=== PATIENT | male | born 1980 | race Caucasian/White ===

== ENCOUNTER 2024-04-05 16:14 | Emergency (ER) | payer MEDICAID, SELFPAY ==
[2024-04-05] VITALS (8 sets, daily range): BP systolic 131–179; BP diastolic 70–93; PULSE 52–87; RESP 16–32; TEMP 36.6; O2SAT 96–98; BMI 32.6
--- NOTE | 2024-04-05 16:29 | ED.VIS.DYS ---
HPI History of Present Illness Chief Complaint: Shortness of Breath [facility] Medical History (Updated 04/05/24 @ 16:24 by Brianna Ramos) Hypertension Asthma Home Medications ?Medication ?Instructions ?Recorded ?Last Taken ?Type No Known/Unobtainable [No Known 07/16/17 Unknown History Home Medications] Allergy/AdvReac Type Severity Reaction Status Date / Time divalproex sodium (From Allergy Hives Verified 04/05/24 16:15 Depakote) tramadol Allergy Itching Verified 04/05/24 16:15 Social History Smoking Status: Former smoker EXAM Physical Exam Const Vital Signs: 04/05/24 16:15 04/05/24 16:22 04/05/24 17:11 Temperature 97.8 F Temperature Source Temporal Pulse Rate 87 64 Respiratory Rate 20 H 17 Respiratory Effort Labored Respiratory Pattern Normal Blood Pressure 154/86 H Blood Pressure Mean 108 Pulse Ox 98 Oxygen Delivery Method Room Air Room Air 04/05/24 17:14 04/05/24 17:18 04/05/24 18:00 Temperature Temperature Source Pulse Rate 67 87 Respiratory Rate 16 32 H Respiratory Effort Respiratory Pattern Blood Pressure 148/93 H 179/79 H Blood Pressure Mean 111 104 Pulse Ox 97 97 98 Oxygen Delivery Method Room Air Room Air 04/05/24 19:00 Temperature Temperature Source Pulse Rate 59 L Respiratory Rate 18 Respiratory Effort Respiratory Pattern Blood Pressure 131/70 H Blood Pressure Mean 90 Pulse Ox 96 Oxygen Delivery Method MDM MDM MDM Narrative Medical decision making narrative: HISTORY OF PRESENT ILLNESS: 44-year-old male presents with cough, shortness of breath since yesterday. States he started using a new chemical engine cleaner at that time. He notes that he can barely catch his breath. 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 He states when he was exposed to engine cleaner yesterday he had trouble breathing. He denies chest pain The patient denies recent surgery in the last 4 weeks or immobilization in the last 3 days, denies previous diagnosis of DVT or PE, hemoptysis, unilateral leg swelling or malignancy with treatment the last 6 months or palliative. No estrogen use noted. REVIEW OF SYSTEMS: Pertinent positives: Shortness of breath, chest tightness, coughing Pertinent negatives: Leg swelling, fever, chest pain, syncope PHYSICAL EXAM: Nursing triage notes reviewed, Vital signs reviewed Constitutional: please see mdm HENT: MMM Eyes: Pupils equal round and reactive to light, Extraocular muscles intact Neck: No stridor, no JVD, full neck ROM Lungs: Clear to auscultation, No wheezing or rales. No increased work of breathing, no conversational dyspnea, no accessory muscle use, no nasal flaring. No respiratory distress noted Heart: Regular rate and rhythm, No murmurs, No rubs and No gallops, 2+ distal pulses (radial, femoral, posterior tibial) in all extremities Abdomen: Soft, there is no tenderness, rigidity, rebound or guarding, no obvious peritoneal signs, no palpable pulsatile abdominal masses, no auscultated abdominal bruit : No CVAT Extremities: No edema Neuro: No focal neurological deficits, cranial nerves II through XII intact, 5/5 strength in all extremities. Intact sensation to light touch in all extremities, 2+ reflexes bilateral patella tendons. Normal gait. No ataxia. Skin: No rash or lesions noted MEDICAL DECISION MAKING: Chief Complaint: Dyspnea External records reviewed: Imaging reviewed: Reviewed chest x-ray from 2017 which showed a normal x-ray of the chest Factors affecting care: reported history of asthma, hypertension Social determinants of health: none History obtained from others: none Consults: none MDM Narrative: Patient was initially hypertensive with a blood pressure 154/86, tachypneic and respirate of 20, otherwise afebrile and nontoxic-appearing. Exam without focal cardiopulmonary maladies. No stigmata of VTE or CHF noted. I considered the following differential diagnosis: Asthma exacerbation, pneumonia, anemia, electrolyte disturbance, pneumothorax, electrolyte disturbance I obtained a broad lab and imaging workup to further elucidate etiology of the patient complaint. I gave a breathing treatment per patient request. ALL IMAGES (IF OBTAINED) HAVE BEEN PERSONALLY REVIEWED AND INTERPRETED BY MYSELF. EKG with normal sinus rhythm, normal axis, normal intervals, no STEMI I have personally reviewed the patient's chest x-ray. Chest x-ray is unremarkable for pulmonary edema, pneumothorax, pneumonia or focal cardiopulmonary abnormality. CBC without leukocytosis, severe anemia, no thrombocytopenia. BMP without evidence of significant electrolyte abnormalities, no anion gap, no acute kidney injury. High-sensitivity troponin is negative, no evidence of myocardial ischemia The synthesis of the patient's history, physical exam, labs images suggest no acute lateral radiology specifically no signs of pneumonia, pneumothorax, anemia, electro disturbance,. Patient was not significantly wheezing he had no significant tachypnea or signs of respiratory distress. No clinical evidence suggest asthma exacerbation. I considered pulm embolism however the patient had a low risk Wells score and as such have a low suspicion for VTE. Upon reassessment patient blood pressure improved to 131/70. He continued to be in respiratory distress. He is likely suffering from reactive airway disease secondary to being exposed to noxious substances in engine cleaner noted in historyr. Recommended using more PPE at work and following up with his primary care for further outpatient evaluation and treatment. The patient and/or family, caregivers express understanding. The patient and/or family, caregivers agrees with the plan. Shared decision making: I will have a discussion with the patient and or visitors regarding risk/benefits of further testing or admission. They will be made aware of of the risk/benefits inherent in this decision they will be given the opportunity to voice understanding. Total critical care time today provided was at least 0 minutes. This excludes separately billable procedures. Critical care time (if documented) is secondary to the patient having high probability of clinically significant/life threatening deterioration in the patient's condition which required my urgent intervention. Impression: 1. Dyspnea 2. History of asthma 3. Reactive airway disease Dispo: Discharge home This note was generated with [employer] dictation software. It may contain incorrect words, spelling, and punctuation that were not noted in review of the chart prior to signing. Lab Data Labs: Laboratory Results - last 24 hr 04/05/24 16:20 WBC 9.1 RBC 4.85 Hgb 14.6 Hct 43.6 MCV 89.9 MCH 30.1 MCHC 33.5 RDW Std Deviation 45.7 H RDW Coeff of Rafael 14.0 Plt Count 261 MPV 10.5 Immature Gran % (Auto) 0.400 Neut % (Auto) 59.8 Lymph % (Auto) 28.5 [place] % (Auto) 9.8 Eos % (Auto) 1.1 Baso % (Auto) 0.4 Absolute Neuts (auto) 5.4 Absolute Lymphs (auto) 2.59 Nucleated RBC % 0 Sodium 139 Potassium 3.4 L Chloride 107 Carbon Dioxide 24.0 Anion Gap 8 BUN 15 Creatinine 0.96 Estim Creat Clear Calc 105.40 Est GFR (MDRD) Af Amer 108 Est GFR (MDRD) Non-Af 89 BUN/Creatinine Ratio 15.6 Glucose 113 H Calcium 9.2 Troponin I High Sens 5 Radiography Diagnostic Testing: Clinical Impression(s) from Imaging Studies Chest X-Ray 04/05/24 17:15 IMPRESSION: No radiographic evidence of acute cardiopulmonary disease. Electronically Signed: Dann Wei DO at 17:30 EDT Reading Location ID and State: [facility] / [place] Tel [phone], Service support , Discharge Plan Triage Chief Complaint: Shortness of Breath ED Provider: Wilbert Ramirez Dx/Rx/DC Orders Prescriptions: No Action No Known Home Medications Primary Care Provider: Care Physician,No Primary Referrals: Care Physician,No Primary [Primary Care Provider] - Print Language: Turkmen
--- NOTE | 2024-04-05 17:00 | EKG12_ITS ---
Test Reason : SOB Blood Pressure : / mmHG Vent. Rate : 076 BPM Atrial Rate : 076 BPM P-R Int : 122 ms QRS Dur : 090 ms QT Int : 374 ms P-R-T Axes : 053 015 041 degrees QTc Int : 420 ms Normal sinus rhythm with sinus arrhythmia MINOR Nonspecific ST abnormality BORDERLINE Confirmed by Ye Adorno ([id number]), online content editor CORAZON CORDON ([id number]) on 04/08/2024 9:52:26 AM Referred By: YOANA/WILLIE Confirmed By:Ye Adorno
[2024-04-05 17:11] LABS: Absolute Lymphocyte Count 2.59 X10^3/uL (0.83-4.51); Absolute Neutrophil Count 5.4 X10^3/uL (2.0-7.7); Basophil# 0.04 X10^3/uL; Basophil% 0.4 % (0-1); Eosinophils% 1.1 % (0-5); Hematocrit 43.6 % (40-54); Hemoglobin 14.6 g/dL (13.0-16.5); Lymphocyte # 2.59 X10^3/ul (0.83-4.51); Lymphocyte % 28.5 % (19-41); Mean Corp Hgb Conc 33.5 g/dL (32-36); Mean Corpuscular Hgb 30.1 pg (27.0-32.0); Mean Corpuscular Volume 89.9 fL (80-94); Mean Platelet Vol. 10.5 fl (6.2-12.0); Monocyte# 0.89 X10^3/uL; Monocyte% 9.8 % (0-10); NRBC Flagged by Analyzer 0 % (0-5); Neutrophil # 5.44 X10^3/uL (2.7-7.7); Neutrophil % 59.8 % (47-70); Platelet Count 261 K/mm3 (150-450); RBC Distribution Width SD 45.7 fl (35.1-43.9); Red Blood Count 4.85 M/mm3 (4.6-6.2); White Blood Count 9.1 K/mm3 (4.4-11.0)
--- NOTE | 2024-04-05 17:15 | RAD_ITS ---
INDICATION: Shortness of breath EXAMINATION/TECHNIQUE: X-RAY - XR Chest 2 Views COMPARISON: July 16, 2017 FINDINGS: LINES/DEVICES: None. LUNGS: No consolidation, edema or effusion. No pneumothorax. MEDIASTINUM AND CARDIOVASCULAR STRUCTURES: Cardiac silhouette not enlarged. Central airways and mediastinal contour are unremarkable. BONES AND SOFT TISSUES: Degenerative vertebral changes. RAD/Chest PA and Lateral IMPRESSION: No radiographic evidence of acute cardiopulmonary disease. Electronically Signed: Dann Wei DO at 17:30 EDT ,
[2024-04-05 17:39] LABS: Anion Gap 8 (5-15); BUN 15 mg/dL (7-18); BUN/Creat Ratio 15.6 RATIO (10-20); Calcium,Total 9.2 mg/dL (8.5-10.1); Chloride 107 mmol/L (98-107); Creatinine, Serum 0.96 mg/dL (0.70-1.30); EST Glomerular Filtration Rate 89 mL/min (>60); Est Glom Filt Rate - Afr Amer 108 mL/min (>60); Glucose 113 mg/dL (74-106); Potassium 3.4 mmol/L (3.5-5.1); Sodium Level 139 mmol/L (136-145); Troponin-I HS 5 pg/mL (3.0-78.0)
== END 2024-04-05 19:44 | disposition home or self-care (01) ==
PROVIDERS: Emergency Provider Emergency Medicine; Visit Provider Emergency Medicine
DX: J45.909 Unspecified asthma, uncomplicated (principal); I10 Essential (primary) hypertension; Z87.891 Personal history of nicotine dependence; R06.00 Dyspnea, unspecified
CPT/HCPCS: 71046; 80048; 84484; 85025; 93005; 94640; 99284; A4216

== ENCOUNTER 2024-05-07 15:49 | Emergency (ER) | payer MEDICAID, SELFPAY ==
[2024-05-07 15:50] VITALS: BP 165/93; PULSE 75; RESP 16; TEMP 36.2; O2SAT 100
--- NOTE | 2024-05-07 19:38 | US_ITS ---
STUDY: VENOUS DOPPLER ULTRASOUND - LEFT LOWER EXTREMITY REASON FOR EXAM: Male, 44 years old. LT LEG SWELLING AND PAIN TECHNIQUE: Ultrasound evaluation of the deep vein system to include roth-scale imaging and compression was performed. Roth-scale imaging and Doppler sonographic evaluation, including duplex spectral analysis and qualitative color flow sonography, was performed. COMPARISON: None. FINDINGS: Common Femoral Vein: Normal compression, spontaneity and augmentation. Normal color Doppler. Common Femoral Vein/Greater Saphenous Junction: Normal compression, spontaneity and augmentation. Normal color Doppler. Femoral Proximal: Normal compression, spontaneity and augmentation. Normal color Doppler. Femoral Middle: Normal compression, spontaneity and augmentation. Normal color Doppler. Femoral Distal: Normal compression, spontaneity and augmentation. Normal color Doppler. Popliteal Vein: Normal compression, spontaneity and augmentation. Normal color Doppler. Posterior Tibial Vein: Normal compression, spontaneity and augmentation. Normal color Doppler. Peroneal Vein: Normal compression, spontaneity and augmentation. Normal color Doppler. US/Venous Duplex Imag/Limited/Uni IMPRESSION: No evidence of DVT. Electronically Signed: Jesus Dunne MD at 20:18 EDT ,
--- NOTE | 2024-05-07 19:41 | EDS_ITS ---
HPI History of Present Illness Chief Complaint: Lower Extremity Injury Informant: patient Narrative Narrative: Left lower leg pain and swelling since yesterday. 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 He is on his feet for 4 hours. Does not do steps. Denies trauma. He states swelling to the ankle however no pain in the ankle. States numbness to the top of the foot. States since being the waiting room in the wheelchair he noted new lesions on his left knee. He states there was some pain and pruritic symptoms distal leg. He denies scratching at it. Denies chest pains or shortness of breath. States he was here a month ago for shortness of breath and had a workup that was negative. History of asthma. Denies history of PE or DVT. Denies any recent travel. He took an NSAID prior to arrival. [facility] Medical History Hypertension Asthma Home Medications ?Medication ?Instructions ?Recorded ?Last Taken ?Type albuterol sulfate 90 mcg/actuation 1 - 2 puff inhalation Q4H PRN PRN 05/07/24 Unknown Rx aerosol inhaler (Ventolin HFA) Wheezing ##1 ibuprofen 600 mg tablet 600 mg PO Q6H PRN PRN pain #20 05/07/24 Unknown Rx TABLETS Allergy/AdvReac Type Severity Reaction Status Date / Time divalproex sodium (From Allergy Hives Verified 04/05/24 16:15 Depakote) tramadol Allergy Itching Verified 04/05/24 16:15 Social History Smoking Status: Former smoker ROS ROS ED Constitutional Constitutional ED: Denies chills, fever(s) or sweats Eyes Eyes: Denies change in vision ENT ENT ED: Denies dysphagia or sore throat Cardiovascular Cardiovascular: Denies chest pain, leg edema, palpitations or racing heartbeat Respiratory/Chest Respiratory/Chest: Denies cough, dyspnea or dyspnea on exertion Gastrointestinal Gastrointestinal: Denies abdominal pain, diarrhea, nausea or vomiting Genitourinary Genitourinary ED: Denies dysuria, hematuria or urinary frequency Musculoskeletal Musculoskeletal: Reports extremity pain; Denies back pain or neck pain Integumentary Denies rash or wounds Neurologic Neurologic: Denies headache(s), paresthesias or weakness EXAM Physical Exam Const Vital Signs: 05/07/24 15:50 05/07/24 19:49 05/07/24 21:23 Temperature 97.2 F L 97.8 F Temperature Source Temporal Pulse Rate 75 75 78 Respiratory Rate 16 16 18 Blood Pressure 165/93 H 134/77 H 145/74 H Blood Pressure Mean 117 96 97 Pulse Ox 100 98 99 Oxygen Delivery Method Room Air Room Air Positive well nourished and well developed General Appearance ED: well developed and NAD HEENT Reports moist mucous membranes normocephalic and atraumatic Eyes EOMs intact bilaterally and conjunctivae normal General Eye ED: Yes normal appearance of both eyes Neck no lymphadenopathy and supple General: Negative for tenderness Chest Wall Chest: Negative for tenderness Resp normal respiratory effort and normal air movement Effort and Inspection: symmetric chest movement; Negative for respiratory distress Cardio regular rate, regular rhythm and no murmurs Peripheral Pulses: pulses 2+ throughout GI normal to inspection, nondistended, normoactive bowel sounds and non-tender Palpation: Negative for guarding or rebound tenderness present Back/Spine no CVA tenderness and no thoracic nor lumbar tenderness Extremity Extremity Narrative: Left lower extremity: Papular lesions 3 spots left knee, scattered small papular lesions left lower leg. There is areas of excoriation with redness. There is no purpura lesions. There is swelling around the ankles nontender. Tender along the distal anterior tibia reproduced with forced plantarflexion. Mild calf tenderness. Pulses are intact distally. General Extremety ED: Yes edema and tenderness General Extremity: edema Neuro oriented x3 and no sensory deficits noted Sensorium / Orientation: awake and alert Skin no rashes or lesions noted and no wounds MDM MDM MDM Narrative Medical decision making narrative: Interventions / MDM: Differential diagnosis: Shinsplints Diagnosis considered but do not suspect: Fracture however x-ray negative. DVT however ultrasound negative. Blood disorder however labs are stable. My EKG interpretation: N/A Imaging independently reviewed and interpreted by myself: 2 view left tib-fib: No fracture. Left lower leg ultrasound: Negative DVT. Also read by radiology. External documents reviewed: N/A Test considered but not ordered:N/A ED course: Patient clinically concerns for shinsplints. Pain anterior goldman swelling mild calf pain. Lesions that does not appear petechial in nature however he states sudden onset in the waiting room. Will check basic labs, ultrasound and x-ray of the leg. X-ray ultrasound negative labs are all stable platelets were 238. Reassured. Guillermo wrap to the leg. Prescription for NSAIDs. Refill of his inhaler for his asthma history. Outpatient follow-up. All questions were answered. Re-evaluation: stable Disposition discussed with patient/family/significant other: Patient Case discussed with consulting clinician: N/A This note was generated with [employer] dictation software. It may contain incorrect words, spelling, and punctuation that were not noted in checking the note before signing. Lab Data Labs: Laboratory Results - last 24 hr 05/07/24 19:40 WBC 7.8 RBC 4.82 Hgb 14.5 Hct 44.0 MCV 91.3 MCH 30.1 MCHC 33.0 RDW Std Deviation 47.8 H RDW Coeff of Rafael 14.2 Plt Count 238 MPV 10.2 Immature Gran % (Auto) 0.400 Neut % (Auto) 60.7 Lymph % (Auto) 28.5 [place] % (Auto) 8.7 Eos % (Auto) 1.2 Baso % (Auto) 0.5 Absolute Neuts (auto) 4.8 Absolute Lymphs (auto) 2.23 Nucleated RBC % 0 Sodium 138 Potassium 4.0 Chloride 107 Carbon Dioxide 24.0 Anion Gap 7 BUN 13 Creatinine 0.80 Est GFR (MDRD) Af Amer 135 Est GFR (MDRD) Non-Af 111 BUN/Creatinine Ratio 16.3 Glucose 88 Calcium 9.3 Radiography Diagnostic Testing: Clinical Impression(s) from Imaging Studies Venous Duplex 05/07/24 19:38 IMPRESSION: No evidence of DVT. Electronically Signed: Jesus Dunne MD at 20:18 EDT , Tibia/Fibula X-Ray 05/07/24 20:00 IMPRESSION: Normal x-ray examination of the tibia and fibula. Electronically Signed: Jesus Dunne MD at 20:19 EDT , Discharge Plan Triage Chief Complaint: Lower Extremity Injury ED Provider: Qamar Boswell Dx/Rx/DC Orders Clinical Impression: Goldman splint of left lower extremity, Left leg swelling, History of asthma Instructions: Goldman Splints Prescriptions: New ibuprofen 600 mg tablet 600 mg PO Q6H PRN PRN (Reason: pain) Qty: 20 0RF albuterol sulfate [Ventolin HFA] 90 mcg/actuation HFA aerosol inhaler 1 - 2 puff inhalation Q4H PRN PRN (Reason: Wheezing) Qty: 1 0RF Stand Alone Forms: ED Work / School Excuse Primary Care Provider: Care Physician,No Primary Referrals: Jaquan Tilley MD [Med Staff - Clinical Athletic Instructor] - Care Physician,No Primary [Primary Care Provider] - Activity Restrictions/Additional Instructions: Ultrasound negative for blood clots. X-ray negative. Blood work with platelets normal. Use Motrin as prescribed Guillermo wrap for support. Print Language: Thai Disposition Disposition: Home, Self Care Discharge Date/Time: 05/07/24 21:24
[2024-05-07 19:49] VITALS: BP 134/77; PULSE 75; RESP 16; O2SAT 98
[2024-05-07 19:51] LABS: Absolute Lymphocyte Count 2.23 X10^3/uL (0.83-4.51); Absolute Neutrophil Count 4.8 X10^3/uL (2.0-7.7); Basophil# 0.04 X10^3/uL; Basophil% 0.5 % (0-1); Eosinophil# 0.09 X10^3/uL; Eosinophils% 1.2 % (0-5); Hemoglobin 14.5 g/dL (13.0-16.5); Lymphocyte # 2.23 X10^3/ul (0.83-4.51); Lymphocyte % 28.5 % (19-41); Mean Corpuscular Hgb 30.1 pg (27.0-32.0); Mean Corpuscular Volume 91.3 fL (80-94); Mean Platelet Vol. 10.2 fl (6.2-12.0); Monocyte# 0.68 X10^3/uL; Monocyte% 8.7 % (0-10); NRBC Flagged by Analyzer 0 % (0-5); Neutrophil # 4.75 X10^3/uL (2.7-7.7); Neutrophil % 60.7 % (47-70); Platelet Count 238 K/mm3 (150-450); RBC Distribution Width CV 14.2 % (11.6-14.6); RBC Distribution Width SD 47.8 fl (35.1-43.9); Red Blood Count 4.82 M/mm3 (4.6-6.2); White Blood Count 7.8 K/mm3 (4.4-11.0)
--- NOTE | 2024-05-07 20:00 | RAD_ITS ---
STUDY: X-RAY - LEFT TIBIA AND FIBULA REASON FOR EXAM: Male, 44 years old. pain TECHNIQUE: 2 view(s) of the tibia and fibula were obtained. COMPARISON: None. FINDINGS: Normal visualized tibia. Normal visualized fibula. There is no demonstrated acute fracture. The soft tissue structures are unremarkable. RAD/Tibia & Fibula 2 Views IMPRESSION: Normal x-ray examination of the tibia and fibula. Electronically Signed: Jesus Dunne MD at 20:19 EDT ,
[2024-05-07 20:04] LABS: Anion Gap 7 (5-15); BUN 13 mg/dL (7-18); BUN/Creat Ratio 16.3 RATIO (10-20); Calcium,Total 9.3 mg/dL (8.5-10.1); Chloride 107 mmol/L (98-107); EST Glomerular Filtration Rate 111 mL/min (>60); Est Glom Filt Rate - Afr Amer 135 mL/min (>60); Glucose 88 mg/dL (74-106); Sodium Level 138 mmol/L (136-145)
--- NOTE | 2024-05-07 20:19 | ED.RN ---
Pt refuses to wear hospital gown
[2024-05-07 21:23] VITALS: BP 145/74; PULSE 78; RESP 18; TEMP 36.6; O2SAT 99
== END 2024-05-07 21:24 | disposition home or self-care (01) ==
PROVIDERS: Emergency Provider Emergency Medicine; Visit Provider Emergency Medicine
DX: S86.892A Other injury of other muscle(s) and tendon(s) at lower leg level, left leg, initial encounter (principal); X58.XXXA Exposure to other specified factors, initial encounter; M79.89 Other specified soft tissue disorders; J45.909 Unspecified asthma, uncomplicated; Z88.5 Allergy status to narcotic agent; Z88.8 Allergy status to other drugs, medicaments and biological substances; Z87.891 Personal history of nicotine dependence
CPT/HCPCS: 73590; 80048; 85025; 93971; 99283